=== PATIENT | female | born 1995 | race Hispanic/Latino ===

== ENCOUNTER 2017-08-24 18:56 | Inpatient (IN) | payer SELFPAY ==
[~2017-08-24] VITALS: Ht 157.5 cm; Wt 83.9 kg
[2017-08-24 19:41] LABS: APPEARANCE,URINE Clear (CLEAR); BILIRUBIN,URINE Negative (NEGATIVE); COLOR,URINE Yellow (YELLOW); GLUCOSE, URINE (UA) Negative (NEGATIVE); KETONES,URINE Negative (NEGATIVE); LEUKOCYTE ESTERASE ,URINE Small (NEGATIVE); NITRATE,URINE Negative (NEGATIVE); OCCULT BLOOD,URINE Negative (NEGATIVE); PROTEIN,URINE Negative (NEGATIVE); UROBILINOGEN,URINE 0.2 mg/dL (0.2-1.0)
[2017-08-24 19:42] LABS: BASOPHILS % (AUTO) 0.7 % (0.0-5.0); EOSINOPHILS % (AUTO) 0.9 % (0.0-8.0); HEMATOCRIT 35.2 % (36-48); LYMPHOCYTES % (AUTO) 24.8 % (21.0-51.0); MEAN CORPUSCULAR HEMOGLOBIN 24.8 pg (27.0-33.0); MEAN CORPUSCULAR VOLUME 75.2 fL (79-99); MONOCYTES % (AUTO) 4.9 % (3.0-13.0); NEUTROPHILS % (AUTO) 68.7 % (40.0-77.0); NUCLEATED RED BLOOD CELLS 0.1 % (0.0-0.19); PLATELET COUNT (AUTO) 357 K/uL (130-400); RED BLOOD CELL COUNT(AUTO) 4.68 MIL/uL (4.00-5.50); RED CELL DISTRIBUTION WIDTH 16.5 % (11.0-15.5); WHITE BLOOD COUNT (AUTO) 11.7 K/uL (4.8-10.8)
[2017-08-24 19:45] LABS: HCG,QUAL RESULT NEGATIVE (NEGATIVE)
[2017-08-24 19:49] LABS: CREATININE 0.9 mg/dL (0.5-1.5); POTASSIUM 3.8 mmol/L (3.5-5.1)
[2017-08-24 19:53] LABS: ALBUMIN 3.6 g/dL (3.5-5.0); BILIRUBIN,TOTAL 0.3 mg/dL (0.2-1.0); TOTAL PROTEIN, SERUM 8.1 g/dL (6.0-8.3)
[2017-08-24 19:55] LABS: RBC,URINE 0-1 /HPF (0-1)
[2017-08-24 19:56] LABS: BACTERIA,URINE Few /HPF (None Seen); SQUAMOUS EPITHELIAL CELL,UR Few /HPF (0-2)
[2017-08-24] MEDS ORDERED: KETOROLAC TROMETHAMINE 30MG/ML ONE (20:06)
[2017-08-24] MEDS ORDERED: HYOSCYAMINE SULFATE 0.125 MG TAB.SUBL SL ONE (20:07)
[2017-08-24] MEDS ORDERED: MORPHINE SULFATE 4 MG/1ML SYG ONE (20:37)
[2017-08-24] MEDS ORDERED: SODIUM CHLORIDE 0.9% 100 ML IV ONE (22:28)
[2017-08-24] MEDS ORDERED: LACTATED RINGERS 1000ML 1,000 ML IV ONE (22:29)
[2017-08-24] MEDS ORDERED: CEFOXITIN SODIUM 1 GM VIAL ONE (22:40)
[2017-08-25 03:00] VITALS: BP 113/66
[2017-08-25] MEDS ORDERED: ONDANSETRON HCL MDV 20ML 2 MG/ML VIAL IVP PRN ×2 (03:00→05:30)
[2017-08-25] MEDS ORDERED: MORPHINE SULFATE 2 MG/ML 1ML SYG IVP PRN ×2 (03:00→05:30)
[2017-08-25] MEDS ORDERED: LACTATED RINGERS 1000ML 1,000 ML IV SCH (03:00)
[2017-08-25] MEDS ORDERED: PHARMACY COMMUNICATION MISC SCH (03:15)
[2017-08-25 05:38] LABS: BASOPHILS % (AUTO) 0.9 % (0.0-5.0); EOSINOPHILS % (AUTO) 1.6 % (0.0-8.0); HEMATOCRIT 35.2 % (36-48); LYMPHOCYTES % (AUTO) 43.5 % (21.0-51.0); MEAN CORPUSCULAR HEMOGLOBIN 25.3 pg (27.0-33.0); MEAN CORPUSCULAR HGB CONC 33.2 g/dL (32.0-36.0); MEAN CORPUSCULAR VOLUME 76.3 fL (79-99); MONOCYTES % (AUTO) 6.5 % (3.0-13.0); NEUTROPHILS % (AUTO) 47.5 % (40.0-77.0); PLATELET COUNT (AUTO) 373 K/uL (130-400); RED BLOOD CELL COUNT(AUTO) 4.62 MIL/uL (4.00-5.50); RED CELL DISTRIBUTION WIDTH 16.7 % (11.0-15.5); WHITE BLOOD COUNT (AUTO) 4.6 K/uL (4.8-10.8)
[2017-08-25] MEDS ORDERED: CEFOXITIN SODIUM 1 GM VIAL ONE (05:38)
[2017-08-25 05:52] LABS: CREATININE 0.9 mg/dL (0.5-1.5); POTASSIUM 4.6 mmol/L (3.5-5.1)
[2017-08-25] MEDS ORDERED: CEFOXITIN SODIUM 1 GM VIAL IV SCH (06:00)
[2017-08-25] MEDS: CEFOXITIN SODIUM 1 GM VIAL IV SCH ×4 (06:00→23:54)
[2017-08-25 07:20] VITALS: BP 116/67
[2017-08-25 08:44] LABS: ALBUMIN 3.2 g/dL (3.5-5.0); BILIRUBIN,DIRECT 1.2 mg/dL (0.0-0.3); BILIRUBIN,TOTAL 1.5 mg/dL (0.2-1.0); TOTAL PROTEIN, SERUM 7.5 g/dL (6.0-8.3)
[2017-08-25] MEDS: LACTATED RINGERS 1000ML 1,000 ML IV SCH ×3 (10:12→23:53)
[2017-08-25 11:13] VITALS: BP 118/64
[2017-08-25] MEDS ORDERED: GADOBENATE DIMEGLUMINE 20 ML IV ONE (11:57)
[2017-08-25 16:04] VITALS: BP 120/60
[2017-08-25 20:13] VITALS: BP 97/58
[2017-08-26] VITALS (26 sets, daily range): BP systolic 101–131; BP diastolic 56–77
[2017-08-26 05:43] LABS: BILIRUBIN,TOTAL 0.4 mg/dL (0.2-1.0); CREATININE 0.7 mg/dL (0.5-1.5); POTASSIUM 3.8 mmol/L (3.5-5.1); TOTAL PROTEIN, SERUM 7.1 g/dL (6.0-8.3)
[2017-08-26] MEDS: CEFOXITIN SODIUM 1 GM VIAL IV SCH ×4 (06:11→18:02)
[2017-08-26] MEDS: LACTATED RINGERS 1000ML 1,000 ML IV SCH ×2 (06:27→11:37)
[2017-08-26] MEDS ORDERED: PROPOFOL 10 MG/ML 20ML VIAL IV ONE (12:02)
[2017-08-26] MEDS ORDERED: ROCURONIUM BROMIDE 10MG/1ML 5ML VL ONE (12:02)
[2017-08-26] MEDS ORDERED: MIDAZOLAM HCL 1 MG/ML 2ML VIAL ONE (12:02)
[2017-08-26] MEDS ORDERED: FENTANYL CITRATE PF 50 MCG/1 ML 2ML VIAL ONE ×2 (12:03→12:28)
[2017-08-26] MEDS ORDERED: HEPARIN SODIUM 1000UNIT/ML 10ML VIAL ONE (12:21)
[2017-08-26] MEDS ORDERED: LACTATED RINGERS 1000ML 1,000 ML IV SCH (12:54)
[2017-08-26] MEDS ORDERED: ACETAMINOPHEN-CODEINE 300/30MG TAB PO PRN (13:00)
[2017-08-26] MEDS ORDERED: PROMETHAZINE HCL 25 MG/ML 1ML AMPULE IM ONE (13:07)
[2017-08-26] MEDS ORDERED: MEPERIDINE-PF 25 MG/ML SYG ONE (13:21)
[2017-08-26] MEDS: ACETAMINOPHEN-CODEINE 300/30MG TAB PO PRN (18:10)
[2017-08-27] MEDS: CEFOXITIN SODIUM 1 GM VIAL IV SCH ×2 (00:30→06:45)
[2017-08-27] MEDS: ACETAMINOPHEN-CODEINE 300/30MG TAB PO PRN (00:44)
[2017-08-27 03:59] VITALS: BP 111/59
[2017-08-27 07:55] VITALS: BP 118/80
[2017-08-27] MEDS ORDERED: ACET1TAB12 PO (10:58)
[2017-08-27 11:27] VITALS: BP 112/65
== END 2017-08-27 13:15 | disposition home or self-care (01) | DRG 419 ==
LOC: EDH 18:56 → EDHIP 18:57 → WSH 08-25 03:00
PROVIDERS: ADMIT Surgery; ATTEND Surgery
PROC: 0FT44ZZ Resection of Gallbladder, Percutaneous Endoscopic Approach (ICD-10-PCS; principal; 2017-08-25)
DX: K80.10 Calculus of gallbladder with chronic cholecystitis without obstruction (principal); Z88.0 Allergy status to penicillin
CPT/HCPCS: 36415; 74183; 76705; 80048; 80053; 80076; 81001; 81025; 83690; 85025; 88304; A4218; A9577; J0694; J1644; J1885; J2175; J2250; J2270; J2550; J2704; J3010; J3490; J7030; J7120